=== PATIENT | male | born 1975 | race Caucasian/White ===

== ENCOUNTER 2019-03-11 06:52 | Outpatient (CLI) | payer BC, SELFPAY ==
--- NOTE | 2019-03-11 07:07 | US_ITS ---
WS: [id number] ULTRASOUND RENAL TECHNIQUE: Ultrasound examination of both kidneys. CLINICAL INFORMATION: HYPERTENSION COMPARISON: None. FINDINGS: RIGHT: Right kidney is normal in size and appearance. Echogenicity: Normal. Cortical thickness: 1.8 cm; Normal. Hydronephrosis: None. Perinephric fluid: None. Right kidney measures: 12.0 cm x 6.1 cm x 6.7 cm. Incidental cyst measuring 1.6 x1.5 x 2.1 cm LEFT: Left kidney is normal in size and appearance. Echogenicity: Normal. Cortical thickness: 1.6 cm; Normal. Hydronephrosis: None. Perinephric fluid: None. Left kidney measures: 11.6 cm x 4.4 cm x 6.5 cm. Normal visualized aorta. Normal bladder. US/US renal BI* [id number] IMPRESSION: 1. Both kidneys are normal in appearance. No hydronephrosis. 2. Normal bladder. 3. Incidental cyst right kidney measuring 2.0 cm
== END 2019-03-11 06:53 | disposition home or self-care (01) ==
LOC: RAD 07:02
PROVIDERS: Family Provider Family Medicine; PCP Nurse Practitioner Family; Visit Provider Nurse Practitioner Family
DX: I10 Essential (primary) hypertension (principal); Q61.01 Congenital single renal cyst
CPT/HCPCS: 76770

== ENCOUNTER → 2019-12-09 11:36 | Outpatient (BNVA) | payer BC, SELFPAY | PROVIDERS: Family Provider Family Medicine; PCP Nurse Practitioner Family; Visit Provider Nurse Practitioner Family | DX: Z11.59 Encounter for screening for other viral diseases (principal); J06.9 Acute upper respiratory infection, unspecified | CPT/HCPCS: 87635 ==

== ENCOUNTER 2020-04-10 11:37 | Outpatient (CLI) | payer BC, SELFPAY ==
--- NOTE | 2020-04-10 11:45 | XR_ITS ---
WS: [id number] ANKLE LEFT TECHNIQUE: 3 views of the left ankle CLINICAL INFORMATION: LEFT ANKLE PAIN COMPARISON: None. FINDINGS: Normal ankle mortise. Normal medial and lateral malleolus. Talar dome is normal. No visualized fractu res. Moderate diffuse soft tissue edema. Plantar calcaneal spurring. Achilles enthesophyte. XR/XR ankle LT min 3V* [id number] IMPRESSION: Moderate diffuse soft tissue edema. No acute fractures..
--- NOTE | 2020-04-10 11:45 | XR_ITS ---
WS: [id number] CERVICAL SPINE TECHNIQUE: 3 views of the cervical spine CLINICAL INFORMATION: NUMBNESS OF LEFT HAND COMPARISON: None. FINDINGS: Straightening of the normal cervical lordosis. Mild spondylitic changes. Normal C1-2 articulation. No rmal prevertebral soft tissues. Moderate facet arthropathy throughout the cervical spine. Normal dens . XR/XR cervical spine 3V* [id number] IMPRESSION: Straightening of the normal cervical lordosis with mild spondylitic changes.
== END 2020-04-10 11:38 | disposition home or self-care (01) ==
PROVIDERS: PCP Nurse Practitioner Family; Visit Provider Nurse Practitioner Family
DX: R20.0 Anesthesia of skin (principal); M25.572 Pain in left ankle and joints of left foot; R60.0 Localized edema
CPT/HCPCS: 72040; 73610

== ENCOUNTER 2020-04-28 10:22 | Outpatient (RCR) | payer BC, SELFPAY | END 2020-05-06 23:59 | disposition home or self-care (01) | LOC: SPT 10:22 | PROVIDERS: PCP Nurse Practitioner Family; Referring Provider Nurse Practitioner Family; Visit Provider Nurse Practitioner Family | DX: M25.572 Pain in left ankle and joints of left foot (principal) | CPT/HCPCS: 97110; 97161 ==

== ENCOUNTER 2020-05-07 06:00 | Outpatient (RCR) | payer BC, SELFPAY | END 2020-06-05 23:59 | disposition home or self-care (01) | LOC: SPT 06:00 | PROVIDERS: PCP Nurse Practitioner Family; Referring Provider Nurse Practitioner Family; Visit Provider Nurse Practitioner Family | DX: M25.572 Pain in left ankle and joints of left foot (principal) | CPT/HCPCS: 97110 ==

== ENCOUNTER 2020-09-24 06:52 | Outpatient (CLI) | payer BC, SELFPAY ==
--- NOTE | 2020-09-24 | US_ITS ---
WS: [id number] ULTRASOUND SOFT TISSUES RIGHT wrist HISTORY: RT WRIST PAIN COMPARISON: None available. TECHNIQUE: 2-D and color Doppler imaging is submitted. Ultrasound of the RIGHT wrist demonstrates no soft tissue or vascular abnormality on this limited nicko luation. Normal flow in the ulnar and radial arteries. There is no soft tissue mass or ganglion iden tified. US/US soft tissue/extremity [id number] IMPRESSION: Negative ultrasound RIGHT wrist.
== END 2020-09-24 06:53 | disposition home or self-care (01) ==
PROVIDERS: PCP Nurse Practitioner Family; Visit Provider Nurse Practitioner Family
DX: M25.531 Pain in right wrist (principal)
CPT/HCPCS: 76882

== ENCOUNTER → 2021-02-08 10:05 | Outpatient (BNVA) | payer BC, SELFPAY | PROVIDERS: PCP Nurse Practitioner Family; Referring Provider Nurse Practitioner Family; Visit Provider Podiatrist Foot & Ankle Surgery | DX: S99.911A Unspecified injury of right ankle, initial encounter (principal); X58.XXXA Exposure to other specified factors, initial encounter; M77.31 Calcaneal spur, right foot | CPT/HCPCS: 73610 ==

== ENCOUNTER 2021-03-08 07:51 | Outpatient (CLI) | payer BC, SELFPAY ==
--- NOTE | 2021-03-08 08:01 | USCV_ITS ---
Kiko Ferreira Age: 45 Gender: M : 1975 Exam Date: 03/08/2021 08:13 Ordering Phys: Marisol Rivera NP Technologist: Exam Location: [facility] [place] Indication: ABNORMAL EKG BP: 130 / 75 HR: 88 Rhythm: Sinus Technical Quality: Suboptimal MEASUREMENTS (Male / Female) Normal Values 2D ECHO LV Diastolic Diameter PLAX 4.4 cm 4.2 - 5.9 / 3.9 - 5.3 cm LV Systolic Diameter PLAX 2.7 cm IVS Diastolic Thickness 1.2 cm 0.6 - 1.0 / 0.6 - 0.9 cm IVS Systolic Thickness 1.3 cm LVPW Diastolic Thickness 1.0 cm 0.6 - 1.0 / 0.6 - 0.9 cm LVPW Systolic Thickness 1.3 cm LVOT Diameter 2.1 cm LV Ejection Fraction 2D Teich 70.0 % LV Ejection Fraction MOD 2C 60.4 % LV Ejection Fraction 2C AL 60.6 % LA Diameter 4.0 cm LA Width 4.1 cm LA Height 4.3 cm RA Width 3.4 cm RA Height 4.8 cm M-MODE Aortic Annulus Diameter 3.3 cm LA Ao Ratio MM 1.4 MV E Point Septal Separation 0.5 cm DOPPLER AV Peak Velocity 140.0 cm/s LVOT Peak Velocity 107.0 cm/s AV Area Cont Eq vti 2.8 cm squared AV Area Cont Eq pk 2.6 cm squared MV Area PHT 5.0 cm squared Mitral E to A Ratio 1.2 MV E' Velocity 40.5 cm/s Mitral E to MV E' Ratio 9.7 Mitral E to LV E' Lateral Ratio 8.3 Mitral E to LV E' Septal Ratio 11.8 TR Peak Velocity 143.5 cm/s TR Peak Gradient 8.2 mmHg TV Peak E Velocity 78.0 cm/s Right Atrial Pressure 3.0 mmHg Pulmonary Artery Systolic Pressu 11.2 mmHg PV Peak Velocity 124.0 cm/s RV Acceleration Time 0.1 s RV Ejection Time 0.2 s RV AcT/ET 0.5 FINDINGS Left Ventricle Normal left ventricular size, systolic function and wall thickness. Left ventricular ejection fraction is estimated at 60 %. Although no diagnostic regional wall motion abnormality could be identified, this possibility cannot be completely excluded based on the study. Normal diastolic function. Right Ventricle Normal right ventricular size and systolic function. Right ventricular systolic pressure 11.2 mmHg. Right Atrium Normal right atrial size. Left Atrium Normal left atrial size. Mitral Valve Structurally normal mitral valve. No mitral valve stenosis. No significant mitral valve regurgitation. Aortic Valve Aortic valve not well visualized. Mildly thickened trileaflet aortic valve. No aortic valve stenosis. No aortic valve regurgitation. Tricuspid Valve Structurally normal tricuspid valve. Trace tricuspid valve regurgitation. Pulmonic Valve Pulmonic valve not well visualized. No pulmonary valve stenosis. Pericardium No pericardial effusion. Echo free space anterior to the right ventricle likely represents a fat pad. Aorta Normal-sized aortic root. CONCLUSIONS 1. Normal left ventricular size, systolic function and wall thickness. Left ventricular ejection fraction is estimated at 60 %. Although no diagnostic regional wall motion abnormality could be identified, this possibility cannot be completely excluded based on the study. Normal diastolic function. 2. Normal right ventricular size and systolic function. 3. No significant valvular abnormality. 4. When compared to previous echocardiogram 04/12/2017, there may not have been any significant change. Evita Sellers MD (Electronically Signed) Final Date: 09 March 2021 12:47 S
== END 2021-03-08 07:52 | disposition home or self-care (01) ==
LOC: RAD 07:53
PROVIDERS: PCP Nurse Practitioner Family; Visit Provider Nurse Practitioner Family
DX: R94.31 Abnormal electrocardiogram [ECG] [EKG] (principal)
CPT/HCPCS: 93306

== ENCOUNTER 2021-09-19 13:08 | Emergency (ER) | payer BC, SELFPAY ==
[2021-09-19 13:22] VITALS: BP 160/69; PULSE 77; RESP 16; TEMP 36.7; O2SAT 97; BMI 49.5
--- NOTE | 2021-09-19 15:38 | XRR_ITS ---
PROCEDURE INFORMATION: Exam: XR Right Foot Exam date and time: 09/19/2021 3:46 PM Age: 45 years old Clinical indication: Injury or trauma; Other: Stepped on a rock; Blunt trauma; Foot; Right; Additional info: Trauma to right foot. TECHNIQUE: Imaging protocol: Radiologic exam of the Right foot. Views: 3 or more views. COMPARISON: No relevant prior studies available. FINDINGS: Bones/joints: Curvilinear calcification along the lateral base of 5th metatarsal demonstrating slightly sclerotic and smooth margin suggesting a chronic process. Minimal degenerative changes of the 1st MTP joint. Plantar calcaneal spur. Chronic calcifications of the proximal fat are fascia. Small chronic enthesophyte at the posterior calcaneus. A tiny well corticated ossific density at the distal dorsal talus measuring 5 mm, which may represent a chronic avulsion injury. There is questionable minimal widening of the C1 M2 distance. There is also minimal inferior offset of the navicula relative to the cuneiform on the lateral view. If there is a clinical concern for Lisfranc injury or other midfoot, follow-up dedicated weight-bearing views or CT may be helpful. Otherwise no acute fracture dislocation. Mild spurring of the tibiotalar joint. Soft tissues: See Bones/joints finding. Other findings: Three nonweightbearing views submitted. XR/XR foot RT min 3V* [id number] IMPRESSION: Questionable minimal widening of C1-M2 distance and navicular-cuneiform offset as described. See discussion above. No acute fracture or other obvious acute process. Other nonacute findings as described.
--- NOTE | 2021-09-19 15:38 | XRR_ITS ---
PROCEDURE INFORMATION: Exam: XR Right Ankle Exam date and time: 09/19/2021 3:55 PM Age: 45 years old Clinical indication: Injury or trauma; Other: Stepped on a rock; Blunt trauma; Ankle; Right; Additional info: Trauma to right ankle. TECHNIQUE: Imaging protocol: Radiologic exam of the Right ankle. Views: 3 or more views. COMPARISON: CR (LOW EXM, ) 09/19/2021 3:46 PM COMPARISON MORE: CR XR ankle RT min 3V* [id number] 02/08/2021 10:11 AM FINDINGS: Bones/joints: Findings in the midfoot and hindfoot as described on foot exam report. No acute fracture dislocation otherwise. Comparison previous ankle exam should be obtained when possible. The described mild navicular-cuneiform offset appears stable suggesting a chronic process. Soft tissues: Medial and lateral soft tissue swelling. XR/XR ankle RT min 3V* [id number] IMPRESSION: 1. Findings in the midfoot/hindfoot as described on foot exam report. No obvious acute fracture dislocation otherwise. 2. Soft tissue swelling.
--- NOTE | 2021-09-19 16:01 | W.ED.EXTPRO ---
Documented by User: ROBE Briseno 09/19/21 17:22 HPI - Extremity Problem General: Chief complaint: Extremity Injury, Lower Stated complaint: R foot injury Time Seen by Provider: 09/19/21 15:42 History of Present Illness: Patient is a 45-year-old male comes to the ED with right foot injury. Injury occurred just prior to arrival. Patient says he was walking around [place] [employer] and stepped on a rock with his right foot. He felt a sharp pain in the midfoot region but denies rolling his ankle. He has full range of motion of right ankle but is unable to bear any weight on right foot since injury. At rest he says his pain is very mild. Associated symptoms: Deny chest pain, fever(s) or rash Review of Systems Const: Denies: fever(s), chills or fatigue Eyes: Denies: change in vision or eye discomfort ENMT: Denies: throat pain, odynophagia, nasal discharge or nasal congestion Card: Denies: chest pain, palpitations, edema, swelling of feet/ankles, dyspnea on exertion or orthopnea Resp: Denies: dyspnea, productive cough or non-productive cough GI: Denies: abdominal pain, nausea, vomiting, diarrhea, constipation or hematochezia : Denies: flank pain, difficulty urinating, dysuria or hematuria Musc: Reports: extremity pain (Right foot); Denies: neck pain, back pain or extremity swelling Skin/Breast: Denies: rash or new lesions Neuro: Denies: headache(s), numbness in extremities or weakness in extremities [facility] ED PFSH: Medical History Hypercholesteremia Hypertension Obesity Sleep apnea Family History Mother Hypertension Father Hypertension Social History Smoking and tobacco status: never smoked Alcohol intake: never Physical Exam Const: COMMON NORMALS: no acute distress, patient oriented x3 and alert GENERAL APPEARANCE: cooperative HENMT: COMMON NORMALS: normocephalic HEAD & SCALP: normocephalic MOUTH: Normal oral and palatal mucosa present THROAT: posterior oropharynx normal and uvula midline Neck/C-Spine: COMMON NORMALS: supple GENERAL: Yes normal visual inspection Resp: COMMON NORMALS: normal respiratory effort, No retractions, No use of accessory muscles and clear to auscultation bilaterally AUSCULTATION: clear to auscultation bilaterally Cardio: COMMON NORMALS: regular rate, regular rhythm, S1 normal heart sound present, S2 normal heart sound present, No gallops present (Cardio), No clicks present (Cardio), No murmurs present (Cardio) and Peripheral pulses 2+ throughout RATE: regular rate RHYTHM: regular rhythm HEART SOUNDS: S1 normal heart sound present and S2 normal heart sound present PERIPHERAL PULSES: Peripheral pulses 2+ throughout GI: COMMON NORMALS: Normal to inspection, nondistended, normoactive bowel sounds present, Soft to palpation, non-tender and no masses PALPATION: Yes Soft to palpation : COMMON NORMALS: Yes no CVA tenderness BLADDER/KIDNEY EXAM: Yes no CVA tenderness Back/Pelvis: COMMON NORMALS: no CVA tenderness Extremity: NARRATIVE EXTREMITY EXAM: Right foot?tenderness over midfoot region. No visible deformity seen. Neurovascular intact. Full range of motion of right ankle. Patient unable to bear weight on right foot. Neuro: COMMON NORMALS: patient oriented x3 SENSORIUM/ORIENTATION: Yes alert GAIT: Yes Normal gait present Skin: GENERAL SKIN EXAM: dry skin Course Vital Signs: Vital signs: Vital Signs Temperature 98.0 F 09/19/21 13:22 Pulse Rate 77 09/19/21 13:22 Respiratory Rate 16 09/19/21 13:22 Blood Pressure 160/69 09/19/21 13:22 Pulse Oximetry 97 09/19/21 13:22 MDM - Extremity (Nontraumatic) Medical Decision Making Patient is a 45-year-old male comes to the ED with right foot injury. Patient's pain is in the midfoot region of right foot. Vitals are stable and patient appears in no acute distress. He is unable to weight-bear on right foot and has tenderness in the midfoot region. Neurovascular tact distally. Foot x-ray shows a possible widening of C1 M2 distance and navicular and cuneiform offset. No acute fracture or other obvious acute process seen. Given patient's clinical presentation and he was unable to bear weight on right foot he was put in a posterior leg splint sent home with some crutches. Told to limit weightbearing until seen by Dr. Mcguire. I placed order with case management patient to be referred to Dr. Mcguire for further evaluation of right foot injury. Patient was sent home with a prescription for ibuprofen and hydrocodone for pain. Patient understood and agreed with plan. Lab Data Radiology Impressions Ankle X-Ray 09/19/21 15:38 IMPRESSION: 1. Findings in the midfoot/hindfoot as described on foot exam report. No obvious acute fracture dislocation otherwise. 2. Soft tissue swelling. Foot X-Ray 09/19/21 15:38 IMPRESSION: Questionable minimal widening of C1-M2 distance and navicular-cuneiform offset as described. See discussion above. No acute fracture or other obvious acute process. Other nonacute findings as described. ADDENDUM: 09/19/21 6554 Addendum Comparison prior right ankle radiographic exam 02/08/2021. The naviculocuneiform offset appears stable suggesting a chronic process. However the C1-M2 distance was difficult to assess. Follow-up assessment may be obtained if clinically indicated. Discharge Plan Discharge Patient Disposition: Home Clinical Impression: Injury of foot, right Qualifiers: Encounter type: initial encounter Qualified Code(s): S99.921A - Unspecified injury of right foot, initial encounter Condition: Stable Prescriptions: New ibuprofen 800 mg tablet 800 mg PO Q8H PRN (Reason: pain) Qty: 30 0RF No Action rosuvastatin 10 mg tablet 10 mg PO DAILY irbesartan 300 mg tablet 300 mg PO DAILY spironolactone 25 mg tablet 37.5 mg PO DAILY indapamide 2.5 mg tablet 2.5 mg PO QAM omega-3 fatty acids [Fish Oil Concentrate] 1,000 mg capsule 1,000 mg PO BID aspirin 81 mg tablet,delayed release (DR/EC) 81 mg PO DAILY H2Q CoQ10 200 mg/gram powder 200 mg PO DAILY naproxen [Naprosyn] 500 mg tablet 500 mg PO BID 30 Days Qty: 60 0RF prednisone 10 mg tablet 10 mg PO DAILY 12 Days Qty: 42 0RF Rx Instructions: Taper dose handout from physician (DME) Custom Molded Orthotics See Rx Instructions .Route .MEDSUPPLY Qty: 1 0RF Rx Instructions: As directed Discharge Orders: Discharge ED (Routine); Ordered 09/19/21 Ordered By: Liu Isidro Referrals: Tony Fernandes MD [Primary Care Provider] - Discharge Diet: Regular Discharge Activity: Limit activity as instructed and Use walker/crutches as instructed Patient Instructions: Opioid Safety Activity Restrictions/Additional Instructions: Follow-up with medical provider as directed. Case management should contact you next several days set up an appointment with Dr. Mcguire for follow-up on right foot pain. Take medications as prescribed. Keep splint on and dry and use crutches to limit any weightbearing. Return to the ER or your medical provider if condition worsens. Please read and understand discharge instructions. Thank you for choosing [facility] for your healthcare needs today. Please realize this is an emergency room and that we are providing you with a medical screening exam and this may not be complete and all inclusive of all the testing and or work up that you may need to determine your ailment or severity of your illness. It is very important that you follow up as instructed or that you return to the Emergency Department should you have concerns or if your condition changes or worsens in any way. Coding Level of Care Code ED Assembler Flexible Leads for Chg Fwd Exam Comprehensive Documented by User: Bryson Bradford DO 09/20/21 08:21 HPI - Extremity Problem General: Chief complaint: Extremity Injury, Lower Stated complaint: R foot injury Time Seen by Provider: 09/19/21 15:42 [facility] ED PFSH: Medical History Hypercholesteremia Hypertension Obesity Sleep apnea Family History Mother Hypertension Father Hypertension Social History Smoking and tobacco status: never smoked Alcohol intake: never Course Vital Signs: Vital signs: Vital Signs Temperature 98.0 F 09/19/21 13:22 Pulse Rate 77 09/19/21 13:22 Respiratory Rate 16 09/19/21 13:22 Blood Pressure 160/69 09/19/21 13:22 Pulse Oximetry 97 09/19/21 13:22 MDM - Extremity (Nontraumatic) Medical Decision Making Patient is a 45-year-old male comes to the ED with right foot injury. Patient's pain is in the midfoot region of right foot. Vitals are stable and patient appears in no acute distress. He is unable to weight-bear on right foot and has tenderness in the midfoot region. Neurovascular tact distally. Foot x-ray shows a possible widening of C1 M2 distance and navicular and cuneiform offset. No acute fracture or other obvious acute process seen. Given patient's clinical presentation and he was unable to bear weight on right foot he was put in a posterior leg splint sent home with some crutches. Told to limit weightbearing until seen by Dr. Mcguire. I placed order with case management patient to be referred to Dr. Mcguire for further evaluation of right foot injury. Patient was sent home with a prescription for ibuprofen and hydrocodone for pain. Patient understood and agreed with plan. Chart reviewed and patient discussed with midlevel. Agree with assessment and plan. Lab Data Radiology Impressions Ankle X-Ray 09/19/21 15:38 IMPRESSION: 1. Findings in the midfoot/hindfoot as described on foot exam report. No obvious acute fracture dislocation otherwise. 2. Soft tissue swelling. Foot X-Ray 09/19/21 15:38 IMPRESSION: Questionable minimal widening of C1-M2 distance and navicular-cuneiform offset as described. See discussion above. No acute fracture or other obvious acute process. Other nonacute findings as described. ADDENDUM: 09/19/21 1644 Addendum Comparison prior right ankle radiographic exam 02/08/2021. The naviculocuneiform offset appears stable suggesting a chronic process. However the C1-M2 distance was difficult to assess. Follow-up assessment may be obtained if clinically indicated. Discharge Plan Discharge Patient Disposition: Home Clinical Impression: Injury of foot, right Qualifiers: Encounter type: initial encounter Qualified Code(s): S99.921A - Unspecified injury of right foot, initial encounter Condition: Stable Prescriptions: New ibuprofen 800 mg tablet 800 mg PO Q8H PRN (Reason: pain) Qty: 30 0RF No Action rosuvastatin 10 mg tablet 10 mg PO DAILY irbesartan 300 mg tablet 300 mg PO DAILY spironolactone 25 mg tablet 37.5 mg PO DAILY indapamide 2.5 mg tablet 2.5 mg PO QAM omega-3 fatty acids [Fish Oil Concentrate] 1,000 mg capsule 1,000 mg PO BID aspirin 81 mg tablet,delayed release (DR/EC) 81 mg PO DAILY H2Q CoQ10 200 mg/gram powder 200 mg PO DAILY naproxen [Naprosyn] 500 mg tablet 500 mg PO BID 30 Days Qty: 60 0RF prednisone 10 mg tablet 10 mg PO DAILY 12 Days Qty: 42 0RF Rx Instructions: Taper dose handout from physician (DME) Custom Molded Orthotics See Rx Instructions .Route .MEDSUPPLY Qty: 1 0RF Rx Instructions: As directed Discharge Orders: Discharge ED (Routine); Ordered 09/19/21 Ordered By: Liu Isidro Referrals: Tony Fernandes MD [Primary Care Provider] - Discharge Diet: Regular Discharge Activity: Limit activity as instructed and Use walker/crutches as instructed Patient Instructions: Opioid Safety Activity Restrictions/Additional Instructions: Follow-up with medical provider as directed. Case management should contact you next several days set up an appointment with Dr. Mcguire for follow-up on right foot pain. Take medications as prescribed. Keep splint on and dry and use crutches to limit any weightbearing. Return to the ER or your medical provider if condition worsens. Please read and understand discharge instructions. Thank you for choosing [facility] for your healthcare needs today. Please realize this is an emergency room and that we are providing you with a medical screening exam and this may not be complete and all inclusive of all the testing and or work up that you may need to determine your ailment or severity of your illness. It is very important that you follow up as instructed or that you return to the Emergency Department should you have concerns or if your condition changes or worsens in any way. Coding Level of Care Code ED Assembler Flexible Leads for Ramírez Trevino Exam Comprehensive
--- NOTE | 2021-09-20 12:53 | DCPLANNER ---
Addendum entered by Marcela Dubon 09/23/21 14:44: Patient had a follow up appointment scheduled for 09.21.[address] Mcguire at ortho - patient did attend appointment. Original Note: educational manager had message to schedule a follow up appointment for patient with ortho. educational manager sent patients information to the front office staff at ortho. Patients information will be printed and reviewed. Clinic will call patient with appointment information.
== END 2021-09-19 17:42 | disposition home or self-care (01) ==
PROVIDERS: Emergency Provider Physician Assistant; PCP Family Medicine
DX: S99.921A Unspecified injury of right foot, initial encounter (principal); Z79.82 Long term (current) use of aspirin; I10 Essential (primary) hypertension; W22.09XA Striking against other stationary object, initial encounter
CPT/HCPCS: 29515; 73610; 73630; 99283; E0114

== ENCOUNTER → 2021-09-21 09:10 | Outpatient (BNVA) | payer BC, SELFPAY | PROVIDERS: PCP Family Medicine; Visit Provider Podiatrist Foot & Ankle Surgery | DX: S99.921A Unspecified injury of right foot, initial encounter (principal); X58.XXXA Exposure to other specified factors, initial encounter; M77.31 Calcaneal spur, right foot | CPT/HCPCS: 73620 ==

== ENCOUNTER → 2021-12-22 13:06 | Outpatient (BNVA) | payer BC, SELFPAY | PROVIDERS: PCP Family Medicine; Visit Provider Podiatrist Foot & Ankle Surgery | DX: M19.90 Unspecified osteoarthritis, unspecified site (principal); S93.601A Unspecified sprain of right foot, initial encounter; X58.XXXA Exposure to other specified factors, initial encounter | CPT/HCPCS: 73630 ==

== ENCOUNTER → 2022-02-14 09:04 | Outpatient (BNVA) | payer BC, SELFPAY | PROVIDERS: PCP Family Medicine; Referring Provider Family Medicine; Visit Provider Student in an Organized Health Care Education/Training Program | DX: G56.03 Carpal tunnel syndrome, bilateral upper limbs (principal); G56.23 Lesion of ulnar nerve, bilateral upper limbs | CPT/HCPCS: 73110 ==

== ENCOUNTER 2022-07-26 05:44 | Day surgery (SDC) | payer BC, SELFPAY ==
[2022-07-20 15:58] VITALS: BMI 48.7
[2022-07-26] VITALS (7 sets, daily range): BP systolic 107–155; BP diastolic 60–106; PULSE 67–80; RESP 14–18; TEMP 36.3–36.8; O2SAT 94–98
[2022-07-26] MEDS: sodium chloride 0.9% 1,000 ML 30 ML IV (06:23)
[2022-07-26] MEDS: acetaminophen 1,000 MG/100 ML PIGGYBACK 400 MG IV (06:23)
[2022-07-26] MEDS: ketorolac 30 mg/mL INJ IVP (06:24)
--- NOTE | 2022-07-26 06:49 | W.PM.OPSFHP ---
Same Day Surgery H&P Indication for Procedure/HPI DATE OF PROCEDURE: July 26, 2022 CHIEF COMPLAINT/INDICATIONFOR SURGICAL PROCEDURE: Left carpal tunnel syndrome patient has no change in HPI since 06/20/2022 continues to have right first dorsal compartment tenosynovitis consistent with de Quervain's disease as well. We talked about this in the office in detail and ultimately would like to have this injection to the right side done in conjunction with his left carpal tunnel release. Given this being on the operative extremity patient is low risk for any chance of increased infection. I did talk with him in detail about this and he does understand and agrees to proceed with left carpal tunnel release and right wrist first dorsal compartment corticosteroid injection PREOP DIAGNOSIS: Left Carpal Tunnel syndrome PLANNED PROCEDURE: Operation Date: 07/26/22 07:00 Proposed Procedures p Carpal Tunnel Release Left:30376,G56.0(Left) - Kurtis Isidro DO Medications/Allergies* Home Medications Medication Instructions Recorded Confirmed Type aspirin 81 mg tablet,delayed 81 mg PO DAILY 02/08/21 07/20/22 History release indapamide 2.5 mg tablet 2.5 mg PO QAM 02/08/21 07/20/22 History irbesartan 300 mg tablet 300 mg PO DAILY 02/08/21 07/20/22 History omega-3 fatty acids 1,000 mg 1,000 mg PO BID 02/08/21 07/26/22 History capsule (Fish Oil Concentrate) rosuvastatin 10 mg tablet 10 mg PO DAILY 02/08/21 07/20/22 History naproxen 07/20/22 History Allergies/Adverse Reactions Allergy/AdvReac Type Severity Reaction Status Date / Time No Known Allergies Allergy Verified 06/20/22 09:42 Current Medications: Generic Name Dose Route Start Last Admin Trade Name Freq PRN Reason Stop Dose Admin Sodium Chloride 1,000 mls @ 30 mls/hr 07/26/22 06:00 07/26/22 06:23 Sodium Chloride 0.9% IV 07/27/22 05:59 30 mls/hr .Q24H FIDENCIO Administration Pertinent History/Comorbid Conditions* Medical History (Updated 06/27/22 @ 08:51 by Kurtis Isidro DO) Cubital tunnel syndrome, bilateral Hypercholesteremia Hypertension Obesity Sleep apnea Family History (Updated 02/17/21 @ 15:53 by Krystyna Allison RN) Mother Hypertension Mother Father Social History Smoking and tobacco status: never smoked Alcohol intake: never Substance/Drug Use: never Pertinent Exam Findings alert, operative site marked and procedure specific exam findings Examination of the? Right upper extremity demonstrates Patient has positive Tinel's Phalen's and median nerve compression test at the right wrist.? No thenar atrophy or intrinsic atrophy noted.? Positive Hillary's and tenderness over right first dorsal compartment.? Examination of the left upper extremity demonstrates normal range of motion of the shoulder elbow wrist and hand.? Negative Tinel's at the shoulder, Tinel's negative at the cubital tunnel.? Positive Tinel's, median nerve compression test, Phalen's of the median nerve at the wrist on the left side.? No thenar atrophy or weakness noted.? Patient has no intrinsic atrophy noted. Recommendations Surgery/Procedure today Other Plans: Patient understands the risk benefits complication alternatives of surgery and elects to proceed with surgical intervention proceed with a left carpal tunnel release today and right first dorsal compartment wrist corticosteroid injection. All questions answered. Coding Level of Care Code Acute Code for Chg Fwd Diagnoses
--- NOTE | 2022-07-26 06:58 | P.ANESASSM_ITS ---
Pre-Anesthetic Assessment Height/Weight: Height 1.78 m Weight 154.221 kg Temp Pulse Resp BP Pulse Ox O2 Del Method 97.3 F L 74 18 155/106 97 Room Air 07/26/22 06:03 07/26/22 06:03 07/26/22 06:03 07/26/22 06:03 07/26/22 06:03 07/26/22 06:03 Preop Diagnosis: Left Carpal Tunnel syndrome Operation Date: 07/26/22 07:00 Proposed Procedures p Carpal Tunnel Release Left:64618,G56.0(Left) - Kurtis Isidro DO Familial anesthetic complications: None Was Beta Fabricio taken within 24 hours: N/A Was Clonidine taken within 24 hours: N/A Last intake: Intake Last Liquid Date 07/25/22 Last Liquid Time 19:50 Last Solid Date 07/25/22 Last Solid Time 19:50 Social No alcohol and No tobacco Exam alert, oriented x 3, clear to auscultation bilaterally and regular rate & rhythm Airway Submandibular: within normal limits Cervical ROM: within normal limits Mallampati: Class III Dentition: chipped and full History/ROS No significant history except as noted and No significant complaints Pulmonary Sleep Apnea CV/HEM Hypertension CONCLUSIONS ?1. Normal left ventricular size, systolic function and wall ?thickness. Left ventricular ejection fraction is estimated at 60 ?%.? Although no diagnostic regional wall motion abnormality ?could be identified, this possibility cannot be completely ?excluded based on the study.? Normal diastolic function. ?2. Normal right ventricular size and systolic function. ?3. No significant valvular abnormality. ?4. When compared to previous echocardiogram 04/12/2017, there ?may not have been any significant change. None reported Hepatic None reported GI Gastroesophageal Reflux Disease (None this am) Metabolic Hyperlipidemia and Morbid Obesity [facility] Lower Back Pain Neuropsych Anxiety and Neuropathy Anesthetic Plan ASA status: 3 Anesthesia: Anesthesia Evaluation, General and MAC Risk of > 500 ml blood loss (7ml/kg in children): No Medications/Allergies Home Medications Medication Instructions Recorded Confirmed Last Taken Type aspirin 81 mg tablet,delayed 81 mg PO DAILY 02/08/21 07/20/22 07/20/22 History release indapamide 2.5 mg tablet 2.5 mg PO QAM 02/08/21 07/20/22 07/24/22 History irbesartan 300 mg tablet 300 mg PO DAILY 02/08/21 07/20/22 07/24/22 History omega-3 fatty acids 1,000 mg 1,000 mg PO BID 02/08/21 07/26/22 06/20/22 History capsule (Fish Oil Concentrate) rosuvastatin 10 mg tablet 10 mg PO DAILY 02/08/21 07/20/22 07/24/22 History Custom Molded Orthotics #1 ea 02/22/21 06/20/22 Unknown Rx ibuprofen 800 mg tablet 800 mg PO Q8H PRN pain #30 tabs 09/19/21 07/26/22 Unknown Rx naproxen 07/20/22 Unknown History hydrocodone 5 mg-acetaminophen 325 1 tab PO Q6H PRN pain 5 days #20 07/26/22 Unknown Rx mg tablet tabs ondansetron 4 mg disintegrating 4 mg PO DAILY 5 days #5 tabs 07/26/22 Unknown Rx tablet Allergies Allergy/AdvReac Type Severity Reaction Status Date / Time No Known Allergies Allergy Verified 06/20/22 09:42 Current Medications Generic Name Dose Route Start Last Admin Trade Name Freq PRN Reason Stop Dose Admin Sodium Chloride 1,000 mls @ 30 mls/hr 07/26/22 06:00 07/26/22 06:23 Sodium Chloride 0.9% IV 07/27/22 05:59 30 mls/hr .Q24H FIDENCIO Administration PFSH Anesthesia Medical History Cubital tunnel syndrome, bilateral Hypercholesteremia Hypertension Obesity Sleep apnea Family History Mother Hypertension Father Hypertension Social History Smoking and tobacco status: never smoked Alcohol intake: never Substance/Drug Use: never Data Anesthesia Cardiac Studies: Echocardiogram 03/08/21
[2022-07-26] MEDS: ceFAZolin 1,000 MG in sodium chloride 0.9% (plus) 50 ML 100 MG IV (07:02)
[2022-07-26] MEDS: ceFAZolin 2,000 MG in sodium chloride 0.9% (plus) 50 ML 100 MG IV (07:02)
[2022-07-26] MEDS: lidocaine-epi 2% 20 mL INJ INJECTION (07:36)
[2022-07-26] MEDS: triamcinolone 40 mg/mL SDV INJECTION (07:44)
--- NOTE | 2022-07-26 07:52 | PM.OP2 ---
Brief Operative Note Date of procedure: 07/26/22 Pre-op diagnosis: Left carpal tunnel syndrome, right wrist de Quervain's disease Post-op diagnosis: same Procedure Done: 1. Left carpal tunnel release 2. right wrist dorsal compartment corticosteroid injection Surgeon: Kurtis Isidro Estimated blood loss (mL): 2 Complications: None Post-op Plan: Patient taken to PACU in stable condition recovering well. Patient receive appropriate discharge instruction as well as pain medication postoperatively. Condition: stable Disposition: same day Coding Level of Care Code Acute Code for Ramírez Trevino
--- NOTE | 2022-07-26 07:54 | PM.PACU ---
PACU note Narrative: Patient taken to PACU in stable condition recovering well pain controlled. Decreased sensation left hand secondary to local anesthesia. Able to wiggle fingers dressings on in place clean dry and intact. Bandage to right dorsal radial wrist from corticosteroid injection. Exam: awake Disposition: discharged
--- NOTE | 2022-07-26 07:56 | PC.NURSE ---
Pt arrived to PACU, awake, denies any pain or nausea at this time. Dressing to left wrist C/D/I, left fingers p/w/d, cap refill < 3 seconds, able to wiggle fingers, LUE elevated on pillow.
--- NOTE | 2022-07-26 08:11 | PM.OP ---
Operative Report Date of procedure: July 26, 2022 Pre-op diagnosis: Preop Diagnosis Left Carpal Tunnel syndrome, right wrist de Quervain's disease Procedure: Post-op diagnosis: Same Procedure done: 1. Left carpal tunnel release 2. Right wrist first dorsal compartment corticosteroid injection Surgeon: Kurtis Isidro DO Anesthesia: MAC (Local) Estimated blood loss: 2mL Tourniquet time 13 minutes IV fluids: See anesthesia record Complications: None Findings: See operative report narrative Condition: stable Disposition: same day Brief History: Patient is a pleasant 46year-old male with left carpal tunnel syndrome and right wrist de Quervain's disease.? Patient has been worked up in the outpatient setting findings and physical examination consistent with this.patient conduction studies consistent with carpal tunnel syndrome.? Through shared decision making in detail out of patient's risk benefits complication alternatives with surgical nonsurgical treatment options pt agrees to proceed with surgical intervention of the left carpal tunnel release .? Patient understands and agrees with current plan.? All questions answered.? Patient elects to proceed with surgical intervention with carpal tunnel release. Procedure: Patient seen and evaluated in the preoperative holding area.? Consent was reviewed and signed with patient.? Correct extremity was marked.? Patient was seen evaluated by the anesthesia department once cleared for surgery was brought back to the operative suite.? Placement was placed onto the OR table in supine position all bony prominences were well-padded patient properly secured to the bed.? Left upper extremity was then placed onto an armboard.? A nonsterile tourniquet was applied to the left upper arm.? Patient underwent anesthesia per the anesthesia department.? Patient's left upper extremity was then prepped and draped in standard orthopedic fashion.? Final timeout performed.? Patient received appropriate preoperative antibiotics. Under sterile aseptic technique patient received local anesthesia over the preplanned carpal tunnel incision site. Esmarch was used to exsanguinate the left upper extremity and tourniquet was insufflated to 250 mmHg. A standard mini open carpal tunnel incision was made.? Starting distally at Duenas's cardinal line in line with the fourth ray extending proximally distal to the wrist crease centered over the carpal tunnel.? Sharp scalpel incision was made through skin and subcutaneous tissue.? Self-retaining retractor was placed and the palmar fascia was identified.? This was then split longitudinally and direct visualization of the transverse carpal ligament was then made.? I then utilizing scalpel feathered through the transverse carpal ligament until I entered the floor of the transverse carpal tunnel ligament into the carpal tunnel.? Next I switched to dissection scissors and completed my release of the transverse carpal ligament distally with care to protect the recurrent motor branch.? I completely released into the palmar fat and until no entrapment was noted distally.? Care was made to protect the superficial palmar arch during my distal dissection.? Next I then placed a Lincoln underneath the transverse carpal tunnel ligament to protect the contents of the carpal tunnel and subsequently utilizing dissection scissors under loupe magnification completely released the transverse carpal ligament proximally into the median antebrachial fascia.? Care was made to protect the palmar cutaneous branch by keeping my scissors curved ulnarly.? Once completely released, I then placed my Lincoln and had appropriate decompression of the carpal tunnel proximally as well as distally.? I then inspected the contents of the carpal tunnel which showed an hourglass shape of the median nerve showing its compression.? No masses were noted.? Tendons appeared healthy.? Wound was then thoroughly irrigated.? Tourniquet deflated.? Hemostasis satisfactory with bipolar electrocautery.? I then closed the incision with interrupted nylon stitches.? Xeroform 4 x 4's and a bulky soft dressing was applied to the left upper extremity.? I then turned my attention towards the first dorsal compartment of the right wrist this was then prepped in standard orthopedic fashion and then I subsequently injected the first dorsal compartment with corticosteroid injection. This was then subsequently cleaned and Band-Aid was applied. Patient tolerated this without any issues. Patient was then awakened from anesthesia and taken to PACU in stable condition.? Patient tolerated procedure without complications. Disposition: Patient taken to PACU in stable condition recovering well.? Dressing clean dry and intact.? Patient will receive appropriate discharge instructions as well as pain medication postoperatively.? Patient to follow-up with me in the office in 2 weeks.? They understand they may be weightbearing as tolerated to the left hand.? Patient should keep incision clean dry and intact.? Patient understands if any questions or concerns may contact the office.
--- NOTE | 2022-07-26 17:04 | ANE.PACU2 ---
Inpatient post-anesthesia follow up: Airway intact: Yes Vital signs: Temperature 98.2 F Pulse Rate 68 Respiratory Rate 18 Blood Pressure 110/83 Pulse Oximetry 98 Oxygen Delivery Me thod Room Air Oxygen Flow Rate Fraction of Inspir ed Oxygen Hydration adequate: Yes Nausea and vomiting: No Pain level: 2 Mental status: Baseline
== END 2022-07-26 09:00 | disposition home or self-care (01) ==
PROVIDERS: PCP Family Medicine; Visit Provider Student in an Organized Health Care Education/Training Program
PROC: (CPT 64721; principal; 2022-07-26 07:00)
DX: G56.03 Carpal tunnel syndrome, bilateral upper limbs (principal); M65.4 Radial styloid tenosynovitis [de Quervain]; I10 Essential (primary) hypertension; K21.9 Gastro-esophageal reflux disease without esophagitis; E78.5 Hyperlipidemia, unspecified; E78.00 Pure hypercholesterolemia, unspecified; G47.30 Sleep apnea, unspecified; E66.01 Morbid (severe) obesity due to excess calories; Z68.42 Body mass index [BMI] 45.0-49.9, adult; Z79.82 Long term (current) use of aspirin
CPT/HCPCS: 64721; J0131; J0690; J1885; J2250; J2704; J2795; J3010; J3301; J3490; J7030

== ENCOUNTER 2023-06-22 08:40 | Outpatient (CLI) | payer BC, SELFPAY ==
--- NOTE | 2023-06-22 08:51 | MM_ITS ---
WS: [id number] BILATERAL 3D TOMOSYNTHESIS DIGITAL DIAGNOSTIC MAMMOGRAPHY WITH CAD CLINICAL INFORMATION: MASS OF L BREAST HISTORY: Palpable lumps LEFT breast COMPARISON: None. TECHNIQUE: Bilateral CC, MLO, and ML views. FINDINGS: Scattered fibroglandular densities bilaterally. Palpable markers LEFT breast. No underlying parenchym al abnormalities. Ultrasound LEFT breast is pending in the areas of concern. Incidental axillary tail lymph nodes RIGHT breast. ULTRASOUND BREAST LEFT TECHNIQUE: Ultrasound left breast focused area of concern. CLINICAL INFORMATION: MASS OF L BREAST FINDINGS: Ultrasound LEFT breast areas of concern. No suspicious abnormalities at the 4 o'clock position in the area of concern. At the 5 o'clock position there is a small amount of benign-appearing fatty tissue in this area. No suspicious lesions to target for biopsy. Subareolar breast tissue bilaterally is nor mal in appearance. MM/[place] [id number] IMPRESSION: BI-RADS: 2-Benign FOLLOW UP: See Report
== END 2023-06-22 08:41 | disposition home or self-care (01) ==
LOC: RAD 08:40
PROVIDERS: PCP Family Medicine; Visit Provider Family Medicine
DX: N63.20 Unspecified lump in the left breast, unspecified quadrant (principal); R92.323 Mammographic fibroglandular density, bilateral breasts
CPT/HCPCS: 76642; 77062; G0279